=== PATIENT | female | born 1940 | race Caucasian/White ===

== ENCOUNTER 2017-12-06 10:04 | Emergency (ER) | payer MEDICARE, OTHER ==
--- NOTE | 2017-12-06 12:04 | ED Physician Documentation ---
PD HPI URI - Stated complaint Stated Complaint: FLU LIKE SYMPTOMS - Chief complaint Chief Complaint: Resp - History obtained from History obtained from: Patient - History of Present Illness Timing - onset: How many days ago (few) Timing duration: Days (few) Timing details: Gradual onset, Still present Associated symptoms: Nasal congestion, Dry cough, Dyspnea. No: Fever, Chills, Sore throat, Productive cough, Chest pain, Bilateral edema Contributing factors: Immunocompromised (chronic neutropenia). No: Sick contact , Travel Similar symptoms before: Has not had sx before Recently seen: Not recently seen Review of Systems Constitutional: reports: Myalgias. denies: Fever, Chills Nose: reports: Rhinorrhea / runny nose, Congestion Throat: denies: Sore throat Cardiac: denies: Chest pain / pressure, Palpitations Respiratory: reports: Cough, Wheezing GI: denies: Nausea, Vomiting, Diarrhea Skin: denies: Rash Neurologic: denies: Generalized weakness, Focal weakness, Numbness PD PAST MEDICAL HISTORY - Past Medical History Past Medical History: Yes Cardiovascular: Hypertension Respiratory: Asthma Endocrine/Autoimmune: HyPOthyroidism, Other (chronic low neutropenia) - Past Surgical History Past Surgical History: Yes Derm: Skin cancer surgery - Present Medications Home Medications: Ambulatory Orders Medication Instructions Recorded Confirmed Albuterol Sulf [Ventolin Hfa 1 - 2 puffs INH Q4HR PRN #1 inhaler 12/06/17 Inhaler] Levothyroxine [Synthroid] 1 tab PO DAILY 12/06/17 12/06/17 Metoprolol Succinate/Hctz 1 tab PO DAILY 12/06/17 12/06/17 [Metoprolol ER-Hctz 50-12.5 mg] buPROPion [Wellbutrin Sr] 1 tab PO DAILY 12/06/17 12/06/17 - Allergies Allergies/Adverse Reactions: Allergies Allergy/AdvReac Type Severity Reaction Status Date / Time SARWAT Inhibitors Allergy Unknown Verified 12/06/17 12:27 Penicillins Allergy Itching Verified 12/06/17 12:27 - Social History Does the pt smoke?: No Smoking Status: Never smoker Does the pt drink ETOH?: No Does the pt have substance abuse?: No - Immunizations Immunizations are current?: No PD ED PE NORMAL - Vitals Vital signs reviewed: Yes - General General: Alert and oriented X 3, No acute distress, Well developed/nourished - HEENT HEENT: Ears normal, Pharynx benign - Neck Neck: Supple, no meningeal sign, No adenopathy - Cardiac Cardiac: RRR, No murmur - Respiratory Respiratory: Clear bilaterally - Abdomen Abdomen: Soft, Non tender - Derm Derm: Normal color, Warm and dry - Extremities Extremities: No deformity, No tenderness to palpate, No edema, No calf tenderness / cord - Neuro Neuro: Alert and oriented X 3, No motor deficit, Normal speech Results - Vitals Vitals: Oxygen O2 Source Room air - Labs Labs: Laboratory Tests 12/06/17 11:31 Influenza A (Rapid) Negative Influenza B (Rapid) Negative - Rads (name of study) chest Radiology: Prelim report reviewed (discoid scarring in fissure and angles. No acute infiltrate. ), EMP read contemporaneously PD MEDICAL DECISION MAKING - ED course Complexity details: reviewed results (scarring in lung but no acute infiltrate) , considered differential, d/w patient Departure - Departure Disposition: 01 Home, Self Care Clinical Impression: Upper respiratory infection Qualifiers: URI type: unspecified URI Qualified Code(s): J06.9 - Acute upper respiratory infection, unspecified Condition: Stable Record reviewed to determine appropriate education?: Yes Instructions: ED Upper Resp Infec No Abx Tx Prescriptions: Albuterol Sulf [Ventolin Hfa Inhaler] 1 - 2 puffs INH Q4HR PRN #1 inhaler PRN Reason: Shortness Of Air/Wheezing Comments: Drink lots of fluids. Tylenol or ibuprofen if needed for fevers or pains or aches. Your chest x-ray is clear without any signs of pneumonia. Your lungs sound clear and have good oxygenation level. It sounds like a viral infection. Presumably will improve over the next several days to week. Treat the symptoms with albuterol inhaler 2 puffs 4 times a day and extra times as needed for wheezing persistent cough. Decadron steroid helps with bronchial inflammation and reducing cough and improve airflow. Tessalon can be used for cough. At the cough medicine if needed for pains and cough. Recheck if still not improving over the next several days and sooner if worse. Discharge Date/Time: 12/06/17 12:35
[2017-12-06] MEDS ORDERED: DEXAMETHASONE 10 MG/ML VIAL PO STA (12:18)
[2017-12-06] MEDS ORDERED: BENZONATATE 100 MG CAPSULE PO STA (12:18)
[2017-12-06] MEDS ORDERED: ACETAMINOPHEN 325 MG TABLET PO STA (12:19)
--- NOTE | 2017-12-06 12:32 | XRAY Report ---
EXAM: CHEST RADIOGRAPHY EXAM DATE: 12/06/2017 11:48 AM. CLINICAL HISTORY: Productive cough, chills. COMPARISON: None. TECHNIQUE: 2 views. FINDINGS: Lungs/Pleura: Diskoid atelectasis or scarring right suprahilar region. Scarring or atelectasis bilate ral costophrenic angles.. No pleural effusion. No pneumothorax. Normal volumes. Mediastinum: Heart size normal. Mitral annular calcifications Ectatic aorta Other: Wedging in upper to mid T-spine vertebral bodies IMPRESSION: Areas of atelectasis or scarring bilaterally [facility] Referring Provider Line: [phone] SITE ID: [id number]
--- NOTE | 2017-12-06 12:32 | XRAY Preliminary Report ---
Exam: XR CHEST 2 VIEW X-RAY IMPRESSION: Areas of atelectasis or scarring bilaterally [facility] SITE ID: [id number]
[2017-12-06 12:33] VITALS: BP 131/85
== END 2017-12-06 12:35 | disposition home or self-care (01) ==
LOC: ED 10:04
DX: J06.9 Acute upper respiratory infection, unspecified (principal); I10 Essential (primary) hypertension; E03.9 Hypothyroidism, unspecified
CPT/HCPCS: 71046; 87275; 87276; 99283; A9270

== ENCOUNTER 2018-04-08 13:09 | Outpatient (CLI) | payer MEDICARE, OTHER ==
--- NOTE | 2018-04-08 14:14 | Ultrasound Report ---
Reason: L INGUINIAL PAIN Procedure Date: 04/08/2018 Accession Number: [id number] / [id number] Procedure: US - Pelvic Limited or F/U CPT Code: FULL RESULT: EXAM: PELVIS ULTRASOUND, LIMITED EXAM DATE: 04/08/2018 01:25 PM. CLINICAL HISTORY: L INGUINIAL PAIN. COMPARISON: None. TECHNIQUE: Real-time scanning was performed of the left inguinal region with static images obtained. FINDINGS: Ultrasound examination limited to the area of left inguinal pain demonstrates a normal-appearing 1.6 x 0.7 x 0.8 cm lymph node. No solid mass, abnormal fluid collections or hernia. Incidental note made of left common femoral artery calcification. IMPRESSION: Negative left inguinal ultrasound except for a normal-appearing lymph node in the area of pain. [facility]
== END 2018-04-08 13:10 | disposition home or self-care (01) ==
LOC: DI 13:09
PROVIDERS: ATTEND Internal Medicine
DX: R10.2 Pelvic and perineal pain (principal)
CPT/HCPCS: 76857

== ENCOUNTER 2018-06-17 08:58 | Outpatient (CLI) | payer MEDICARE, OTHER ==
[2018-06-17 09:45] LABS: BASOPHILS % (AUTO) 0.9 %; EOSINOPHILS # (AUTO) 0.2 10^3/uL (0.0-0.7); EOSINOPHILS % (AUTO) 4.9 %; HGB - HEMOGLOBIN 15.9 g/dL (12.0-16.0); LYMPHOCYTES # (AUTO) 2.3 10^3/uL (1.5-3.5); LYMPHOCYTES % (AUTO) 59.9 %; MEAN CORPUSCULAR HEMOGLOBIN 30.2 pg (27.0-31.0); MEAN CORPUSCULAR HGB CONC 34.2 g/dL (32.0-36.0); MEAN CORPUSCULAR VOLUME 88.4 fL (81.0-99.0); MEAN PLATELET VOLUME 8.8 fL (7.9-10.8); MONOCYTES # (AUTO) 0.8 10^3/uL (0.0-1.0); MONOCYTES % (AUTO) 21.6 %; NEUTROPHILS % (AUTO) 12.7 %; PLT - PLATELET COUNT 198 10^3/uL (130-450); RED BLOOD COUNT 5.25 10^6/uL (4.20-5.40); RED CELL DISTRIBUTION WIDTH 13.7 % (12.0-15.0); WHITE BLOOD COUNT 3.8 x10^3/uL (4.8-10.8)
[2018-06-17 09:48] LABS: ALBUMIN 4.1 g/dL (3.2-5.5); ALBUMIN/GLOBULIN RATIO 1.2 (1.0-2.2); BILIRUBIN,TOTAL 1.2 mg/dL (0.2-1.0); CALCIUM 10.1 mg/dL (8.5-10.3); CREATININE 0.7 mg/dL (0.4-1.0); TOTAL PROTEIN 7.5 g/dL (6.7-8.2)
[2018-06-17 09:54] LABS: NEUTROPHILS # (AUTO) 0.5 10^3/uL (1.5-6.6)
[2018-06-17 10:38] LABS: PLATELET ESTIMATE, MANUAL NORMAL (130-450,000) (NORMAL)
== END 2018-06-17 08:59 | disposition home or self-care (01) ==
LOC: LAB 08:58
PROVIDERS: ATTEND Internal Medicine
DX: R06.09 Other forms of dyspnea (principal); Z79.899 Other long term (current) drug therapy; G47.00 Insomnia, unspecified; I10 Essential (primary) hypertension
CPT/HCPCS: 36415; 80053; 83880; 84443; 85025

== ENCOUNTER 2019-03-28 14:22 | Outpatient (CLI) | payer MEDICARE, OTHER ==
--- NOTE | 2019-03-29 13:34 | Ultrasound Report ---
Reason: RUQ PAIN, BLOATING Procedure Date: 03/28/2019 Accession Number: [id number] / [id number] Procedure: US - Abdomen Complete CPT Code: FULL RESULT: EXAM: ABDOMEN ULTRASOUND EXAM DATE: 03/28/2019 04:20 PM. CLINICAL HISTORY: Right upper quadrant pain, bloating. COMPARISON: None. TECHNIQUE: Real-time scanning was performed with static images obtained. FINDINGS: Liver: Liver parenchyma is mildly echogenic diffusely. No evidence for cirrhosis or mass lesion. 15.7 cm. Main portal vein flow: Hepatopetal. Gallbladder: Normal. No stones, wall thickening, or sonographic Chavez's sign. Biliary System: Common bile duct measures 5 mm. No intrahepatic or extrahepatic ductal dilatation. Pancreas: Visualized portion is unremarkable. Kidneys: Right: 10.8 cm longitudinally. Normal. No contour-deforming mass, stones, or hydronephrosis. Left: 10.7 cm longitudinally. Normal. No contour-deforming mass, stones, or hydronephrosis. Spleen: 9.5 cm. Normal in size and echotexture. Aorta and Inferior Vena Cava: Unremarkable. Other: None. IMPRESSION: 1. Normal gallbladder. 2. Mildly infiltrated liver. [facility]
== END 2019-03-28 14:23 | disposition home or self-care (01) ==
LOC: DI 14:22
PROVIDERS: ATTEND Physician Assistant
DX: R10.11 Right upper quadrant pain (principal); R14.0 Abdominal distension (gaseous)
CPT/HCPCS: 76700

== ENCOUNTER 2019-05-29 12:53 | Outpatient (CLI) | payer MEDICARE, OTHER ==
--- NOTE | 2019-05-29 16:58 | SLEEP CARE CONSULTATION ---
Information from patient questionnaire entered by Gabby Irwin. I have reviewed and concur with the information entered by Gabby Irwin. This document represents the service I personally performed and the decisions made by me, Malika Villarreal MD, [facility] [place]. History of Present Illness Reason for Visit: New patient, Previously diagnosed sleep apnea (has not used machine for 1.5 years) Chief Complaint: reports: Insomnia, Unrefreshed sleep, Snoring, Excessive daytime sleepiness, Observed pauses in breathing, Fatigue, Frequent awakenings at night Duration of Symptoms: since 1992 Usual bedtime: [id number] Time it takes to fall asleep: 2 hours Snores at night: Yes Observed to quit breathing while asleep: Yes Sleeps alone due to snoring: No Reasons for waking at night: reports: Gasping for air Toss, Turn, or Twitch while sleeping: Yes Recalls having dreams: Yes Usually gets out of bed at: 1200 Feels refreshed in the morning: No Morning headache: Yes Sleepy or fatigued during the day: Yes Ever fallen asleep while driving: No Takes day naps: No Dreams during day naps: Yes Prior sleep studies: Yes Year and Where: 2014 [facility] (2 studies) Additional HPI information: I had the pleasure of seeing Ms. Nick today regarding obstructive sleep apnea- hypopnea. As you know, she is an 79 year old lady who was diagnosed with the sleep-disordered breathing at [facility] in 2014. The AHI was 23.9. She was prescribed a CPAP device set at 8 15 cmH2O. She used it sporadically at first and not much at all this past year. She said the pressure is too high. Presently her ResMed AirSense 10 is set at 9 12 cmH2O. She wears a ResMed AirFit F10 full face mask. She got his supplies from [employer]. She noticed significant improvement when she was able to use the device. Past Medical History Past Medical History: reports: Hypertension, Claustrophobia, Arthritis, Hypothyroidism, Fibromyalgia, Anemia, Anxiety, Depression, GERD, Other (spondylolithesis, severe dry eyes) Social History The patient's occupation is retired. Patient is and lives in [place]. Have you smoked in the past 12 months: No Alcohol use: No Caffeine use: No Family History Family history of sleep disordered breathing: Yes Family Hx Sleep Apnea: Other: Snoring (child) Allergies and Home Medications Drug allergies reviewed: Yes Home medication list reviewed: Yes Review of Systems Cardiovascular: reports: high blood pressure, leg or foot swelling Respiratory: reports: sputum production Gastrointestinal: reports: heartburn, difficulty swallowing, diarrhea, abdominal pain Urinary: reports: incontinence, frequency Neurological: reports: head trauma, gait or balance problems Psychiatric: reports: anxiety, depression, claustrophobia Ear/Nose/Throat: reports: nasal congestion, sinus problems, dry mouth/throat, hoarseness, wisdom teeth removed Endocrine: reports: thyroid disease, sluggishness, too hot or cold, increased urination Musculoskeletal: reports: joint pain, neck pain, back pain, joint swelling, muscle pain or cramping, mobility problems Immunologic: reports: sneezing, itching, allergies to food or environment Physical Exam Vital signs obtained and entered by: Dr. Villarreal Blood Pressure: 156/86 Cuff size: regular Heart Rate: 63 O2 Saturation: 95 Height: 5 ft 5 in Weight: 209 lb Body Mass Index: 34.7 BMI Classification: Obesity Class 1 Neck circumference: 16 Mood/affect: normal HEENT: No craniofacial malformation Nostrils: patent to airflow Turbinates: normal Septum: midline Mouth and throat: narrow oropharynx Soft palate: long Hard palate: normal Uvula: normal Uvula visualization: 25% Mallampati Class III Tongue: normal in size Tonsils: small Chin and jaw: normal size and position Neck: normal w/o lymphadenopathy or thyromegaly Heart: regular rate and rhythm Lungs: clear bilaterally Abdomen: soft, non-tender Extremities: no edema or clubbing Neurologic: intact, no focal deficits Impression and Plan IMPRESSION: 1. Obstructive Sleep Apnea-Hypopnea Syndrome, moderate, as previously diagnosed. The patient is not using her CPAP because of air leaking into her eyes and the pressure being too high subjectively. The patient did experience improvement on the treatment when she was able to use the CPAP. Without the CPAP, she snores loudly and wakes up choking. Narrow oropharynx and obesity are common predisposing factors for obstructive sleep apnea-hypopnea syndrome. Pathophysiology of sleep-disordered breathing was discussed. I advised her to start using her CPAP again. I will lower the pressure to make it comfortable. I recommend switching to newer full face masks. Plan: 1. Restart CPAP at 4 8 cmH2O (pressure change made manually on her machine). 2. A different full face mask, e.g. ResMed AirTouch F-20 full face mask, Res[employer] S.As DreamWear full face mask, and ResMed F30 full face mask. 3. Avoid alcohol, sedative and muscle relaxant around bedtime. 4. Attempt to lose weight. 5. Return for follow up in one month. I spent 100% of this 20 minute visit face to face with the patient with greater than 50% of this was spent time counseling the patient and coordination of care.
[2019-05-29 16:59] VITALS: BP 156/86
== END 2019-05-29 12:54 | disposition home or self-care (01) ==
LOC: SC 12:53
PROVIDERS: ATTEND Internal Medicine Pulmonary Disease
DX: G47.33 Obstructive sleep apnea (adult) (pediatric) (principal)
CPT/HCPCS: 99203; G0463; 99212

== ENCOUNTER 2019-07-15 12:32 | Outpatient (CLI) | payer MEDICARE, OTHER ==
--- NOTE | 2019-07-16 05:03 | MRI Report ---
Reason: LUMBAR RADICULOPATHY Procedure Date: 07/15/2019 Accession Number: [id number] / [id number] Procedure: MRI - Lumbar Spine W/O CPT Code: Final Report FULL RESULT: EXAM: MRI LUMBAR SPINE WITHOUT CONTRAST EXAM DATE: 07/15/2019 01:39 PM. CLINICAL HISTORY: Lumbar radiculopathy. COMPARISON: LUMBAR SPINE 2 VIEW 08/29/2018 11:26 AM. TECHNIQUE: Multiplanar, multisequence T1-weighted and fluid-sensitive sequences of the lumbar spine from T11 to S1 without contrast. Other: None. FINDINGS: Spinal Canal: The conus terminates at L2. The conus medullaris and cauda equina are unremarkable. Alignment: Grade 1 anterolisthesis at L5-S1 measures 3-4 mm, stable. Bone Marrow: Five [id number] lumbar vertebral bodies are confirmed on the radiographs. No gross fractures or bone lesions. No bone marrow replacement. Disk Levels/Facets: T11-T12: Unremarkable on sagittal images. T12-L1: Unremarkable. L1-L2: Bilateral facet arthropathy is present without spinal canal or foraminal stenosis. L2-L3: Bilateral facet arthropathy results in moderate bilateral foraminal narrowing. The spinal canal is patent. L3-L4: A disk bulge with facet arthropathy and ligamentum flavum infolding result in mild spinal canal stenosis. A left foraminal annular fissure is noted. There is mild fluid in the facet joints. There is mild bilateral foraminal narrowing. L4-L5: A disk bulge with facet arthropathy and ligamentum flavum infolding result in moderate spinal canal stenosis. A left foraminal annular fissure is noted. There is trace fluid in the facet joints. A small synovial cyst is seen adjacent to the posterior aspect of the right facet joint measuring 5 mm (image 13, series 601). There is moderate bilateral foraminal narrowing. L5-S1: Anterolisthesis is present with uncovering of the disk. Superimposed facet arthropathy and ligamentum flavum infolding result in moderate spinal canal stenosis. There is moderate fluid in the bilateral facet joints. Facet arthropathy and anterolisthesis result in moderate bilateral foraminal narrowing. Musculature: There is moderate diffuse fatty atrophy of the posterior paraspinal muscles without intramuscular edema. Other: The partially visualized retroperitoneum is unremarkable. IMPRESSION: 1. Normal conus medullaris and cauda equina. 2. Mild to moderate multilevel degenerative changes result in moderate spinal canal stenosis at L4-L5 and L5-S1 with moderate bilateral foraminal narrowing. 3. No abnormal bone marrow edema is seen. Comment: The following findings are so common in adults without low back pain that while we report their presence, they must be interpreted with caution and in the context of the clinical situation. (Reference Noreenk et al, Spine 2001) Prevalence of findings in patients without low back pain: Disk degeneration (any evidence): 92% Disk desiccation/T2 signal loss: 83% Disk height loss: 56% Disk bulge: 64% Disk protrusion: 32% Annular tear/high intensity zone: 38% [facility]
== END 2019-07-15 12:33 | disposition home or self-care (01) ==
LOC: DI 12:32
PROVIDERS: ATTEND Orthopaedic Surgery
DX: M51.16 Intervertebral disc disorders with radiculopathy, lumbar region (principal); M48.061 Spinal stenosis, lumbar region without neurogenic claudication
CPT/HCPCS: 72148

== ENCOUNTER 2019-08-01 13:45 | Outpatient (CLI) | payer MEDICARE, OTHER ==
--- NOTE | 2019-08-01 23:02 | SLEEP CARE CONSULTATION ---
Information from patient questionnaire entered by Dena Marcano. I have reviewed and concur with the information entered by Dena Marcano. This document represents the service I personally performed and the decisions made by me, Malika Villarreal MD, [facility]. History of Present Illness Previous diagnosis: Moderate, Obstructive Sleep Apnea-Hypopnea Syndrome AHI: 23.9 Reason for follow up: other (2 month) Equipment type: CPAP Equipment obtained from: [facility] Mask style: Full face Mask brand: Respironics HPI additional information: HPI: Ms. Nick returned today for follow up of nasal CPAP therapy. She was diagnosed to have moderate obstructive sleep apnea-hypopnea syndrome. The patient wears with a Respironics AmaraView full face mask. She reports using the device almost nightly but not night. She complained of runny nose but no particular problem with the device such as soreness on the face, dry nose, epi staxis, nasal congestion or headache. She thinks that the pressure of 4 - 8 is more comfortable but is now too low at the beginning of the night. On the CPAP therapy she notices improvement in her sleep quality, and that she wakes up feeling fresher in the morning and more awake/alert during the day. AHI is 8; and air leak, 3 L/min. Subjective Patient concerns: reports: air blowing in eyes, nasal congestion, dry mouth, nose, throat Initial [place] Sleepiness Scale score: 4 Current [place] Sleepiness Scale score: 3 Allergies and Home Medications Drug allergies reviewed: Yes Home medication list reviewed: Yes Review of Systems Review of systems same as previous: Yes Physical Exam Weight: 210 lb Impression and Plan IMPRESSION: 1. Obstructive Sleep Apnea-Hypopnea Syndrome, moderate, with the patient continuing to have [id number]. The lower pressure setting is more comfortable but the residual AHI is now higher. The patient wanted to switch from [facility] to [facility] but is not getting response from the latter. She would like to switch back. She is in need of a new Respironics AmaraView full face mask. PLAN: 1. Raise autoCPAP slightly to 6 10 cmH2O. 2. Prescription made for supplies and faxed to [facility]. 3. Try a ResMed AirTouch F-20 full face mask. 4. Return for follow up in 2 months. I spent 100% of this visit face to face with the patient with greater than 50% of this was spent time counseling the patient and coordination of care.
== END 2019-08-01 13:46 | disposition home or self-care (01) ==
LOC: SC 13:45
PROVIDERS: ATTEND Internal Medicine Pulmonary Disease
DX: G47.33 Obstructive sleep apnea (adult) (pediatric) (principal)
CPT/HCPCS: 99213; G0463; 99212

== ENCOUNTER 2019-08-28 17:22 | Outpatient (CLI) | payer MEDICARE, OTHER ==
--- NOTE | 2019-08-28 19:51 | Ultrasound Report ---
Reason: PAIN AND SWELLING LT LOWER LEG Procedure Date: 08/28/2019 Accession Number: [id number] / [id number] Procedure: US - Duplex Ext Veins Left CPT Code: Final Report FULL RESULT: EXAM: LEFT LOWER EXTREMITY VENOUS ULTRASOUND EXAM DATE: 08/28/2019 06:14 PM. CLINICAL HISTORY: PAIN AND SWELLING LT LOWER LEG. COMPARISON: None. TECHNIQUE: Real-time sonographic vascular imaging was performed by the welding machine operator/tender through the lower extremity utilizing both color-flow and Doppler spectral analysis. Multiple malt liquors sales representative static images were saved for review. FINDINGS: Common Femoral Vein (CFV): Normal. CFV-GSV Junction: Normal. Profunda Femoral Vein (PFV): Normal. Femoral Vein (FV) Prox: Normal. Femoral Vein (FV) Mid: Normal. Femoral Vein (FV) Dist: Normal. Popliteal Vein: Normal. Posterior Tibial Veins: Normal. Peroneal Veins: Normal. Other: None. IMPRESSION: No evidence for deep venous thrombosis in the visualized left lower extremity. [facility]
== END 2019-08-28 17:23 | disposition home or self-care (01) ==
LOC: DI 17:22
PROVIDERS: ATTEND Internal Medicine
DX: M79.662 Pain in left lower leg (principal); R22.42 Localized swelling, mass and lump, left lower limb

== ENCOUNTER 2019-09-27 12:47 | Outpatient (CLI) | payer MEDICARE, OTHER ==
[2019-09-27 13:42] VITALS: BP 120/70
--- NOTE | 2019-09-27 13:42 | SLEEP CARE CONSULTATION ---
Information from patient questionnaire entered by Dena Marcano. I have reviewed and concur with the information entered by Dena Marcano. This document represents the service I personally performed and the decisions made by me, Maryjo Redman, RN, MSN, CONDITIONER TENDER. History of Present Illness Previous diagnosis: Moderate, Obstructive Sleep Apnea-Hypopnea Syndrome AHI: 23.9 Reason for follow up: other (2 month) Equipment type: CPAP Equipment obtained from: [facility] Mask style: Full face Mask brand: Resmed (Air Fit F20) Backup mask available: Yes (old mask ) Last cushion change: a month ago CPAP Compliance Data - Data Reviewed with Patient Average duration of nightly device use: 3.05 Compliance rate %: 37 Current pressure setting (cmH2O): 4-9 Average residual AHI: 18.0 Subjective Patient concerns: reports: air blowing in eyes, nasal congestion (chronic), dry mouth, nose, throat. denies: aerophagia, mask discomfort, mask leak noise, condensation in mask/hose, epistaxis Observed to snore while using device: Yes Current pressure setting perceived as: comfortable (not sleeping better due to mask leaks and dry mouth.) Initial [place] Sleepiness Scale score: 4 Current [place] Sleepiness Scale score: 5 Review of Systems Review of systems same as previous: No (left ankle pain and swelling, seeing a specialist ) Physical Exam Blood Pressure: 120/70 Cuff size: long Heart Rate: 64 O2 Saturation: 97 Height: 5 ft 5 in Weight: 203 lb Body Mass Index: 33.7 BMI Classification: Obese Impression and Plan 1. Obstructive Sleep Apnea-Hypopnea Syndrome, moderate, with fair treatment compliance and elevated residual AHI . On CPAP therapy, the patient has better sleep quality and is more rested overall. For mask concerns, it seems she was fitted with too small of a mask. She brought it in and it does not fit well around her mouth if she opens her mouth to breathe. She is waking frequently to mask leaks and irritation of eyes. She is wearing an eye cover and uses eye drops. She is advised to also follow up with her eye doctor due to chronic dry eye condition. I remeasured her and a medium mask would be a better fit.. Thus I wrote an order for a medium mask cushion and change in style to Air Touch. It is hoped this will reduce mask leaks and eye irritation and improve sleep. Mask leaks predominately from when patient sleeps on their side can be reduced by using a CPAP pillow. A CPAP pillow sample was shown. This and other styles can be purchased online. Oral dryness can be reduced by adjusting humidity setting higher as completed on her CPAP and changed from auto to 6 setting. The heated hose was also adjusted lower to 77 as she is running out of water when awakens. Printed instructions given on how to change humidity and heated hose settings with rationale explaining why to change further. Oral dryness can also be reduced by reducing mask leaks. Patient advised that chronic oral dryness can affect dental health and advised to follow up with dentist. In addition, there are oral dryness products that can be used to reduce dryness such as Biotene products, Dry mouth rinse and Xylimelts. Patient to discuss best option with dentist. Patient's apnea severity and rationale for treatment to reduce apnea, improve sleep quality and reduce cardiovascular and cerebrovascular events was reviewed. I also reviewed the benefit of consistent device use of CPAP for hypertension. Hopefully the above measures will improve her sleep quality and benefit from CPAP use. * Change CPAP pressure to 8-12 cmH2O * Change mask cushion size * Follow up with eye doctor for chronic dry eye condition * Notify me if snoring with mask or feeling that the pressure is too much or too little * Attempt to lose weight * Call this office if any problems using CPAP * Return for follow up in 2 months , or sooner if concerns arise Time Spent with Patient (minutes): 40 I spent 100% of this visit face to face with the patient with greater than 50% of this was spent time counseling the patient and coordination of care.
== END 2019-09-27 12:48 | disposition home or self-care (01) ==
LOC: SC 12:47
PROVIDERS: ATTEND Nurse Practitioner Family
DX: G47.33 Obstructive sleep apnea (adult) (pediatric) (principal); E66.9 Obesity, unspecified; Z68.33 Body mass index [BMI] 33.0-33.9, adult
CPT/HCPCS: 99215; G0463; 99212

== ENCOUNTER 2019-11-29 13:00 | Outpatient (CLI) | payer MEDICARE, OTHER ==
--- NOTE | 2019-11-29 13:30 | SLEEP CARE CONSULTATION ---
Information from patient questionnaire entered by Gabby Irwin. I have reviewed and concur with the information entered by Gabby Irwin. This document represents the service I personally performed and the decisions made by me, Maryjo Redman, RN, MSN, [place]. History of Present Illness Service Date and Time: 11/29/2019 1300 Previous diagnosis: Moderate, Obstructive Sleep Apnea-Hypopnea Syndrome AHI: 23.9 Reason for follow up: other (2 month with pressure change) Equipment type: CPAP Equipment obtained from: [facility] Mask style: Full face (Air foam) CPAP Compliance Data - Data Reviewed with Patient Average duration of nightly device use: 3H 38M Compliance rate %: 28 Current pressure setting (cmH2O): 8-12 Humidity setting: ? Heated hose setting: ? Average residual AHI: 10 Central apnea: 1.7 Obstructive apnea: 5.9 Hypopnea: 2.4 Average large leak: zero Subjective Patient concerns: reports: mask discomfort (at bridge of nose as sits too high), air blowing in eyes (due to fitting too high on bridge of nose - looking for googles to wear to protect eyes/ uses eye drops), mask leak noise (fits better around mouth since new mask cushion), dry mouth, nose, throat (very dry), other (pulling off in sleep when wakes too dry as too uncomfortable, unknown humidity setting as not on compliance / fills reservoir to line every night. ). denies: aerophagia, condensation in mask/hose, nasal congestion, epistaxis Current pressure setting perceived as: comfortable On therapy, patient: reports: sleeping better (if not waking to mask problems or dryness) Initial [place] Sleepiness Scale score: 4 Physical Exam Height: 5 ft 5 in Impression and Plan 1. Obstructive Sleep Apnea-Hypopnea Syndrome, moderate, with fair treatment compliance and elevated residual AHI apnea control. On CPAP therapy, the patient has better sleep quality and is more rested overall. To reduce mask leaks, I will have her try the new style she has that sits below nose. This style may be more effective the way she describes current mask fit and should reduce mask leaks into her eyes. She is to continue with eye lubricating drops and her eye mask. I will also have her DME contact her re a mask fit and if another style is needed. Oral dryness can be reduced by adjusting humidity setting higher or heated hose lower or by adjusting both settings. I will have her DME contact her how to change humidity and heated hose settings. Her device does not report current settings on data download. Her current pressure range has reduced residual AHI significantly to mild range. It appears to be affected by her mask leaks so I will not change until a better seal is found. Hopefully the above measures will assist patient to be able to use CPAP more comfortably and obtain more benefit from treatment. Patient's apnea severity and rationale for treatment to reduce apnea, improve sleep quality and reduce cardiovascular and cerebrovascular events was reviewed. * Continue auto CPAP pressure at 8-12 cmH2O * Try new mask style has that sits below nose * Mask refitting * Use eye cover * Adjust humidity. * Contact this office if continued mask problems. * Notify me if snoring with mask or feeling that the pressure is too much or too little * Call this office if any problems using CPAP * Return for follow up in 1 month , or sooner if concerns arise Visit Type: Telehealth Phone (to reduce risk of Covid 19 exposure) Patient Location: Home Location of Provider: Home Patient agrees and consents to this telehealth visit type: Yes Patient agrees to have their insurance billed: Yes Time Spent with Patient (minutes): 10 Provider Statement: I spent 100% of the Telehealth Phone Call with the patient with greater than 50% spent counseling the patient and coordination of care.
== END 2019-11-29 13:01 | disposition home or self-care (01) ==
LOC: SC 13:00
PROVIDERS: ATTEND Nurse Practitioner Family
DX: G47.33 Obstructive sleep apnea (adult) (pediatric) (principal)

== ENCOUNTER 2020-01-10 14:52 | Outpatient (CLI) | payer MEDICARE, OTHER ==
--- NOTE | 2020-01-10 15:43 | SLEEP CARE CONSULTATION ---
Information from patient questionnaire entered by Dena Marcano. I have reviewed and concur with the information entered by Dena Marcano. This document represents the service I personally performed and the decisions made by me, Maryjo Redman, RN, MSN, [employer]. History of Present Illness Service Date and Time: 01/10/2020 1452 Previous diagnosis: Moderate, Obstructive Sleep Apnea-Hypopnea Syndrome AHI: 23.9 (in 2015) Reason for follow up: other (6 week) Equipment type: CPAP Equipment obtained from: [facility] Mask style: Full face ([place] with clips) Backup mask available: Yes (old mask Air Touch ) Last cushion change: changed to large - 1 month ago Prior sleep studies: Yes Year and Where: 2014 - [facility] ([place], [place]) Sleep Medicine in [place], [place] Type of Sleep Study: Polysomnography CPAP Compliance Data - Data Reviewed with Patient Average duration of nightly device use: 2.75 Compliance rate %: 13 Current pressure setting (cmH2O): 8-12 Humidity setting: auto Heated hose settin% Average residual AHI: 4.7 (11.4 cmH20 95th 9.7 median) Average large leak: 4.4 liters per minute Subjective Missed days of use due to: reports: other (reduced nights of use are due to waking to pressure too high and generally it is at [id number]) Patient concerns: reports: aerophagia (mild distention of stomach and relieved with burping. treated for GERD with antiacids), air blowing in eyes, mask leak noise, nasal congestion (chronic -talked to PCP - stopped antihistamines ), dry mouth, nose, throat (dry mouth day and night - adjusted humidity ), epistaxis. denies: mask discomfort (wearing an eye mask / most days especially higher pressure), condensation in mask/hose, other Observed to snore while using device: Yes (mild) Current pressure setting perceived as: too high (most nights and takes off mask after a short while) On therapy, patient: reports: other (Patient not able to sleep any length of time with CPAP as wakes with pressure too high at [id number] and takes off mask. ) Initial [place] Sleepiness Scale score: 4 (in 2019) Current [place] Sleepiness Scale score: 7 Allergies and Home Medications Home medication list reviewed: No (losartan reduced to 50mg and stopped antih istamine) Review of Systems Review of systems same as previous: Yes Physical Exam Blood Pressure: 138/80 Cuff size: long Heart Rate: 58 O2 Saturation: 97 Height: 5 ft 5 in Weight: 207 lb Body Mass Index: 34.4 BMI Classification: Obese Impression and Plan 1. Obstructive Sleep Apnea-Hypopnea Syndrome, moderate, with fair treatment compliance and good apnea control. On CPAP therapy, the patient has noted reduced sleep on current pressure as feels it is too high. She is also experiencing aerophagia. For comfort of air and aerphagia I will change her autoCPAP pressure to [id number]. She is to contact this office if pressure uncomfortable or is not correcting her aerophagia. Her oral dryness can be reduced by adjusting humidity setting higher or heated hose lower or by adjusting both settings. Patient brought in her device as could not find instructions on how to change her settings. I showed her how to change setting and humidity changed from auto to 6. Printed instructions given on how to change humidity and heated hose settings with rationale explaining why to change. Patient advised that chronic oral dryness can affect dental health and advised to follow up with dentist. She has already started Biotene spray before and after sleep. Patient to discuss best option with dentist. She has an appointme nt scheduled for March. Patient's apnea severity and rationale for treatment to reduce apnea, improve sleep quality and reduce cardiovascular and cerebrovascular events was reviewed. * * Changeauto CPAP pressure to 9-10 cmH2O * Implement methods to reduce oral dryness. * Notify me if snoring with mask or feeling that the pressure is too much or too little * Attempt to lose weight * Call this office if any problems using CPAP * Return for follow up in 2 months , or sooner if concerns arise Visit Type: In Office Time Spent with Patient (minutes): 30 Provider Statement: I spent 100% of the Face to Face Visit with the patient with greater than 50% spent counseling the patient and coordination of care.
[2020-01-10 17:22] VITALS: BP 138/80
== END 2020-01-10 14:53 | disposition home or self-care (01) ==
LOC: SC 14:52
PROVIDERS: ATTEND Nurse Practitioner Family
DX: G47.33 Obstructive sleep apnea (adult) (pediatric) (principal); E66.9 Obesity, unspecified; Z68.34 Body mass index [BMI] 34.0-34.9, adult
CPT/HCPCS: 99214; G0463; 99212

== ENCOUNTER 2020-01-24 12:53 | Outpatient (CLI) | payer MEDICARE, OTHER ==
--- NOTE | 2020-02-01 11:11 | Mammography Report ---
BILATERAL DIGITAL SCREENING MAMMOGRAM 3D/2D: 01/24/2020 CLINICAL: Routine screening. No prior exams were available for comparison. There are scattered fibroglandular elements in both br easts. No significant masses, calcifications, or other findings are seen in either breast. IMPRESSION: NEGATIVE There is no mammographic evidence of malignancy. A 1 year screening mammogram is recommended. This exam was interpreted at Station ID: [id number]. NOTE: For mammograms, a report in lay terms will be sent to the patient. Approximately 15% of breast malignancies will not be visualized mammographically. In the management of a palpable breast mass, a negative mammogram must not discourage biopsy of a clinically suspicious lesion. Electronically Signed By: Monroe gamez/mariela:01/31/2020 17:51:19 ACR BI-RADS Category 1: Negative 3341F PARENCHYMAL PATTERN: (A) - The breast(s) demonstrate(s) scattered fibroglandular densities. BI-RADS CATEGORY: (1) - 1 RECOMMENDATION: (ANNUAL) - Recommend routine annual screening mammography. [id number] 1 year screening LATERALITY: (B)
== END 2020-01-24 12:54 | disposition home or self-care (01) ==
LOC: DI 12:53
PROVIDERS: ATTEND Internal Medicine
DX: Z12.31 Encounter for screening mammogram for malignant neoplasm of breast (principal)
CPT/HCPCS: 77063; 77067

== ENCOUNTER 2020-03-27 11:41 | Outpatient (CLI) | payer MEDICARE, OTHER | END 2020-03-27 11:42 | disposition home or self-care (01) | LOC: LAB 11:41 | PROVIDERS: ATTEND Internal Medicine | DX: K11.7 Disturbances of salivary secretion (principal); H04.123 Dry eye syndrome of bilateral lacrimal glands | CPT/HCPCS: 36415; 81599; 86235 ==

== ENCOUNTER 2020-06-18 10:41 | Outpatient (CLI) | payer MEDICARE, OTHER ==
--- NOTE | 2020-06-18 18:17 | CARDIAC PROCEDURE NOTE ---
DATE OF SERVICE: 06/18/2020 Physician: Teri Carreno MD [place] protocol time 4 minutes 22 seconds. METs is 5.93. REASON FOR STOPPING TEST: Dizziness, feeling as though she were going to collapse. HEART RATE RESPONSE: Baseline 64 to maximum of 138, which was well over the 85% maximum heart rate predicted of 117. BLOOD PRESSURE RESPONSE: 182/86 to maximum 239/86. SYMPTOMS: She had some chest pain toward the end of the exercise portion of the test. She also complained of some nausea. ST-SEGMENT RESPONSE: Minimal ST depression 1 mm in leads II and III. ARRHYTHMIAS: None detected. IMPRESSION: No significant EKG changes. Symptoms of chest pain occurred. CONCLUSION: Await Cardiolite portion of test thus far an equivocal test. TD: 06/18/2020 15:32 MTDD
--- NOTE | 2020-06-19 17:22 | Nuclear Medicine Report ---
PROCEDURE: Rest and exercise myocardial perfusion SPECT with gated imaging and ejection fraction INDICATIONS: CHEST PAIN RADIOPHARMACEUTICAL: 10.5 mCi Tc-99m Myoview IV at rest and 32.6 mCi Tc-99m Myoview IV at peak exerc ise. [id number] was performed. TECHNIQUE: Radiopharmaceutical was injected at peak stress test, and also at rest. SPECT images wer e obtained. SPECT myocardial perfusion images were displayed in short axis, horizontal long axis, an d vertical long axis views. Gated images were reviewed using AutoQUANT software. COMPARISON: None available. FINDINGS: Raw data: There is good myocardial labeling by radiotracer. No significant motion artifacts. Lung- to-heart ratio is 0.28 (normal is less than 0.38 for tetrafosmin tracer). Left ventricle function: Gated images demonstrate normal left ventricle wall thickening. No segment al wall motion abnormality. No transient ischemic dilation; TID is 1.03 (normal less than 1.3). The left ventricle resting end-diastolic volume is normal. Left ventricle stress ejection fraction is > 70%; normal values are above 45%. Myocardial perfusion: There is a small, mild, partially reversible perfusion defect in the anterior apex, which is resolved on prone imaging, likely caused by breast attenuation artifact. There is othe rwise normal distribution of activity in the left and right ventricular myocardium. No fixed or reve rsible perfusion defects to suggest myocardial ischemia or infarct. IMPRESSION: 1. Normal myocardial perfusion images. No convincing evidence for myocardial ischemia or infarction. 2. Normal left ventricular volume and systolic function. 3. Please correlate with stress ECG result. PQRS ATTESTATIONS: Measure 322 - Is this imaging test primarily performed on a low-risk surgery patient for preoperative evaluation within 30 days preceding their low-risk non-cardiac surgery? Low-risk surgery is defined as cardiac or myocardial infarction less than 1%, including (but not limited to) endoscopic pr ocedures, superficial procedures, cataract surgery, and excisional breast surgery: Answer: No Measure 323 - Is this imaging test performed primarily for the monitoring of an asymptomatic patient who had percutaneous coronary intervention on the visit date or within 2 years of the visit date? An swer: No Measure 324 - Is this imaging test performed primarily for the initial detection and risk assessment on an asymptomatic, low coronary heart disease patient? Low CHD risk definition = clinicians should consider the maximum number of available patient factors used to estimate risk based on [place] (A TP III criteria), typically age, gender, diabetes, smoking status, and use of blood pressure medicati on, and integrate age appropriate estimates for missing elements, such as LDL or standard blood press ure. Answer: No Reviewed by: Alf Flores MD on 06/19/2020 5:21 PM PST Approved by: Alf Flores MD on 06/19/2020 5:21 PM PST Station ID: [id number]
== END 2020-06-18 10:42 | disposition home or self-care (01) ==
LOC: DI 10:41
PROVIDERS: ATTEND Internal Medicine
DX: R07.9 Chest pain, unspecified (principal)
CPT/HCPCS: 78452; 93017; A9500

== ENCOUNTER 2020-07-05 14:05 | Outpatient (CLI) | payer MEDICARE, OTHER ==
[2020-07-05] MEDS ORDERED: IOVERSOL 320 50 ML VIAL ONE (14:31)
[2020-07-05] MEDS ORDERED: IOVERSOL 320 100 ML VIAL IVP ONE ×2 (14:31→15:36)
[2020-07-05 15:05] LABS: CREATININE 0.8 mg/dL (0.4-1.0)
[2020-07-05] MEDS ORDERED: IOVERSOL 320 50 ML VIAL PO ONE (15:36)
--- NOTE | 2020-07-05 16:20 | CT Report ---
PROCEDURE: Abdomen/Pelvis W INDICATIONS: ABD PX CONTRAST: IV CONTRAST: Optiray 320 ml: 100 PO CONTRAST: Optiray 320 ml50 TECHNIQUE: After the administration of oral and intravenous contrast, 5 mm thick sections acquired from the diap hragms to the symphysis. 5 mm thick coronal and sagittal reformats were acquired. For radiation dos e reduction, the following was used: automated exposure control, adjustment of mA and/or kV accordin g to patient size. COMPARISON: Abdominal ultrasound 03/28/2016. FINDINGS: Image quality: Excellent. ABDOMEN: Lung bases: Lung bases are clear. Heart size is prominent. Calcifications in the region of the mitr al valve. Solid organs: Liver and spleen are normal in size. No focal lesion. Suspect hepatic steatosis. Punct ate calcification at the inferior margin of the right lobe of the liver. Gallbladder is nondistended. No calcified gallstones identified. Biliary system is non dilated. Pancreas enhances normally. No adrenal nodules. Kidneys demonstrate normal size and enhancement, without hydronephrosis. Peritoneum and bowel: Bowel loops demonstrate normal wall thickness and caliber. Appendix is not def initely seen. Prominent stool the colon. No free fluid or air. Nodes and vessels: Small mesenteric lymph nodes in the right lower quadrant. No enlarged nodes. No re troperitoneal adenopathy. Aorta and inferior vena cava are normal in size. Moderate calcified atheros clerotic plaque in the abdominal aorta. Miscellaneous: Tiny fat-containing. The vocal hernia. PELVIS: Genitourinary: Bladder is decompressed. Small calcified fibroids. Miscellaneous: No inguinal hernias or adenopathy. Bones: No suspicious bony lesions. No vertebral body compression fractures. IMPRESSION: 1. Increased conspicuity of small mesenteric lymph nodes in the right lower quadrant. This could be d ue to occult inflammatory process. No free fluid. Appendix is not identified. 2. Prominent stool the colon which could be seen in constipation. Reviewed by: Marcin Tejeda MD on 07/05/2020 4:19 PM [facility] Approved by: Marcin Tejeda MD on 07/05/2020 4:19 PM [facility] Station ID: [id number]
== END 2020-07-05 14:06 | disposition home or self-care (01) ==
LOC: DI 14:05
PROVIDERS: ATTEND Internal Medicine
DX: R10.30 Lower abdominal pain, unspecified (principal); Z79.899 Other long term (current) drug therapy
CPT/HCPCS: 36415; 74177; 82565; Q9967

== ENCOUNTER 2020-10-03 12:54 | Outpatient (CLI) | payer MEDICARE, OTHER ==
[2020-10-03 13:29] LABS: BASOPHILS % (AUTO) 1.1 %; EOSINOPHILS # (AUTO) 0.1 10^3/uL (0.0-0.7); HCT - HEMATOCRIT 45.5 % (37.0-47.0); HGB - HEMOGLOBIN 15.1 g/dL (12.0-16.0); MEAN CORPUSCULAR HEMOGLOBIN 30.1 pg (27.0-31.0); MEAN CORPUSCULAR HGB CONC 33.2 g/dL (32.0-36.0); MEAN CORPUSCULAR VOLUME 90.6 fL (81.0-99.0); MEAN PLATELET VOLUME 10.7 fL (7.9-10.8); MONOCYTES # (AUTO) 0.6 10^3/uL (0.0-1.0); MONOCYTES % (AUTO) 17.5 %; NEUTROPHILS # (AUTO) 0.7 10^3/uL (1.5-6.6); NEUTROPHILS % (AUTO) 19.4 %; PLT - PLATELET COUNT 185 10^3/uL (130-450); RED BLOOD COUNT 5.02 10^6/uL (4.20-5.40); RED CELL DISTRIBUTION WIDTH 13.1 % (12.0-15.0); WHITE BLOOD COUNT 3.5 x10^3/uL (4.8-10.8)
[2020-10-03 14:41] LABS: ALBUMIN 3.8 g/dL (3.2-5.5); ALBUMIN/GLOBULIN RATIO 1.1 (1.0-2.2); ALKALINE PHOSPHATASE 54 IU/L (42-121); ALT ALANINE AMINOTRANSFERASE 18 IU/L (10-60); AST ASPARTATE AMINOTRANSFERASE 20 IU/L (10-42); BUN - BLOOD UREA NITROGEN 16 mg/dL (6-20); CALCIUM 9.5 mg/dL (8.5-10.3); CARBON DIOXIDE - CO2 29 mmol/L (21-32); CHLORIDE 102 mmol/L (101-111); CHOL/HDL RATIO 5.5 (<4.4); CHOLESTEROL 202 mg/dL; CREATININE 0.7 mg/dL (0.4-1.0); GFR - MDRD 80 (>89); GLUCOSE 95 mg/dL (70-100); HDL CHOLESTEROL 37 mg/dL; LDL CHOLESTEROL,CALCULATED 108 mg/dL; LDL/HDL RATIO 2.9 (<4.4); POTASSIUM 3.9 mmol/L (3.5-5.0); SODIUM 142 mmol/L (135-145); TOTAL PROTEIN 7.4 g/dL (6.7-8.2); TRIGLYCERIDES 286 mg/dL; VLDL CHOLESTEROL 57 mg/dL
[2020-10-03 20:06] LABS: ESTIMATED AVERAGE GLUCOSE 108 mg/dL (70-100); HEMOGLOBIN A1c% 5.4 % (4.27-6.07)
== END 2020-10-03 12:55 | disposition home or self-care (01) ==
LOC: LAB 12:54
PROVIDERS: ATTEND Internal Medicine
DX: I10 Essential (primary) hypertension (principal); Z13.6 Encounter for screening for cardiovascular disorders; Z79.899 Other long term (current) drug therapy; H81.10 Benign paroxysmal vertigo, unspecified ear; E03.9 Hypothyroidism, unspecified; R73.01 Impaired fasting glucose
CPT/HCPCS: 36415; 80053; 80061; 83036; 83721; 84443; 85025

== ENCOUNTER 2020-12-16 15:42 | Outpatient (CLI) | payer MEDICARE, OTHER ==
--- NOTE | 2020-12-16 16:44 | XRAY Report ---
PROCEDURE: Ankle 3 View LT INDICATIONS: L ANKLE PAIN TECHNIQUE: 3 views of the ankle were acquired. COMPARISON: None FINDINGS: Bones: No fractures or dislocations. Ankle mortise is normally aligned. No suspicious bony lesions . Soft tissues: No tibiotalar joint effusion. Achilles tendon appears normal. IMPRESSION: No visualized acute fracture or dislocation. However, occult injury cannot be excluded. Recommend short interval imaging follow-up in 7-10 days as clinically indicated for additional evalua tion. Reviewed by: Faye Bowers MD on 12/16/2020 4:42 PM PDT Approved by: Faye Bowers MD on 12/16/2020 4:42 PM PDT Station ID: [id number]
== END 2020-12-16 15:43 | disposition home or self-care (01) ==
LOC: DI 15:42
PROVIDERS: ATTEND Internal Medicine
DX: M25.572 Pain in left ankle and joints of left foot (principal)

== ENCOUNTER 2021-02-14 08:31 | Day surgery (SDC) | payer MEDICARE, OTHER ==
[2021-02-14] MEDS ORDERED: LACTATED RINGERS 1,000 ML IV ONE (08:43)
[2021-02-14] MEDS ORDERED: MIDAZOLAM 2 MG/2 ML VIAL ONE ×2 (10:20→10:58)
[2021-02-14] MEDS ORDERED: fentaNYL 250 MCG/5 ML VIAL ONE (10:20)
--- NOTE | 2021-02-14 10:41 | HISTORY & PHYSICAL EXAMINATION ---
Chief Complaint - Chief Complaint Chief Complaint: history of colon polyps History of Present Illness - History Obtained From Records Reviewed: yes History obtained from: pt Exam Limitations: none - History of Present Illness HPI Comment/Other: history of colon polyps and due for surveillance. History - Past Medical History Cardiovascular: reports: Hypertension, High cholesterol Respiratory: reports: Sleep apnea, CPAP use Endocrine/Autoimmune: reports: HyPOthyroidism GI: reports: GERD, Ulcers, Colon polyps : reports: Incontinence, Frequency HEENT: reports: None Psych: reports: Depression, Anxiety, Panic attacks Musculoskeletal: reports: Osteoarthritis, Chronic back pain Derm: reports: None MRSA Hx?: No - Past Surgical History General: reports: Colonoscopy Derm: reports: Skin cancer surgery Meds/Allgy - Home Medications Home Medications: Ambulatory Orders Medication Instructions Recorded Confirmed Levothyroxine [Synthroid] 100 mcg PO DAILY 12/06/17 02/14/21 Fluticasone [Flonase] 2 sprays INH DAILY 02/13/21 02/14/21 Loratadine [Claritin] 1 tab ORAL DAILY 02/13/21 02/13/21 Losartan [Cozaar] 1 tab ORAL DAILY 02/13/21 02/14/21 Zolpidem [Ambien] 12.5 mg ORAL DAILY 02/13/21 02/14/21 - Allergies Allergies/Adverse Reactions: Allergies Allergy/AdvReac Type Severity Reaction Status Date / Time SARWAT Inhibitors Allergy Unknown Verified 12/06/17 12:27 Penicillins Allergy Itching Verified 12/06/17 12:27 Review of Systems - Other Findings Other Findings: 10 pt ros as above otherwise unremarkable Exam - Vital Signs Reviewed Vital Signs: Yes Vital Signs: Vital Signs x48h Temp Pulse Resp BP Pulse Ox 02/14/21 08:43 36.4 C L 83 14 172/93 H 97 - Physical Exam General Appearance: positive: Alert Eyes Bilateral: positive: PERRL, EOMI ENT: positive: No signs of dehydration Neck: positive: No JVD Respiratory: positive: Breath sounds nml Cardiovascular: positive: Regular rate & rhythm Abdomen: positive: Non-tender, No distention Neurologic/Psychiatric: positive: Oriented x3 Conclusion/Plan - Problem List (1) History of colon polyps Conclusion/Plan: plan surveillance colonoscopy. parq held and consent obtained
[2021-02-14] MEDS ORDERED: LACTATED RINGERS 400 ML IV ONE (11:25)
[2021-02-14 11:56] VITALS: BP 121/65
== END 2021-02-14 08:32 | disposition home or self-care (01) ==
LOC: SDS 08:31
PROVIDERS: ATTEND Surgery
PROC: 0DBN8ZX Excision of Sigmoid Colon, Via Natural or Artificial Opening Endoscopic, Diagnostic (ICD-10-PCS; 2021-02-14)
PROC: 0DBK8ZX Excision of Ascending Colon, Via Natural or Artificial Opening Endoscopic, Diagnostic (ICD-10-PCS; principal; 2021-02-14 09:30)
DX: Z12.11 Encounter for screening for malignant neoplasm of colon (principal); D12.2 Benign neoplasm of ascending colon; K63.5 Polyp of colon; G47.30 Sleep apnea, unspecified
CPT/HCPCS: 45380; J3010; J7120

== ENCOUNTER 2022-04-23 14:06 | Outpatient (CLI) | payer MEDICARE, OTHER ==
--- NOTE | 2022-04-23 15:18 | DEXA Report ---
PROCEDURE: Dexa Spine and/or Hip INDICATIONS: OSTEOPENIA TECHNIQUE: Dual energy x-ray absorptiometry (DXA) was performed on a Spectral Edge System. Regions measur ed are the AP Spine, femoral neck, and if needed forearm. COMPARISON: None. FINDINGS: Lumbar Spine: Bone Mineral Density 1.1 g/cm/cm,T score -0.9, normal bone density Left Hip: Bone Mineral Density 1.0 g/cm/cm,T score 0.1, normal bone density. Impression: Normal bone density. Patients with diagnosis of osteoporosis or osteopenia should have regular bone mineral density assess ment. For those eligible for Medicare, routine testing is allowed once every 2 years. Testing frequ ency can be increased for patients who have rapidly progressing disease or for those who are receivin g medical therapy to restore bone mass. Reviewed by: Chantal Pradhan MD on 04/23/2022 3:16 PM PDT Approved by: Chantal Pradhan MD on 04/23/2022 3:16 PM PDT Station ID: [id number]
== END 2022-04-23 14:07 | disposition home or self-care (01) ==
LOC: DI 14:06
PROVIDERS: ATTEND Internal Medicine
DX: M85.80 Other specified disorders of bone density and structure, unspecified site (principal)

== ENCOUNTER 2022-05-27 08:00 | Outpatient (CLI) | payer MEDICARE, OTHER ==
[2022-05-27 16:32] LABS: BASOPHILS # (AUTO) 0.1 10^3/uL (0.0-0.1); BASOPHILS % (AUTO) 1.6 %; EOSINOPHILS # (AUTO) 0.2 10^3/uL (0.0-0.7); EOSINOPHILS % (AUTO) 4.9 %; HCT - HEMATOCRIT 45.8 % (37.0-47.0); HGB - HEMOGLOBIN 15.6 g/dL (12.0-16.0); LYMPHOCYTES # (AUTO) 1.8 10^3/uL (1.5-3.5); LYMPHOCYTES % (AUTO) 49.5 %; MEAN CORPUSCULAR HEMOGLOBIN 30.4 pg (27.0-31.0); MEAN CORPUSCULAR HGB CONC 34.1 g/dL (32.0-36.0); MEAN CORPUSCULAR VOLUME 89.1 fL (81.0-99.0); MEAN PLATELET VOLUME 11.7 fL (7.9-10.8); MONOCYTES # (AUTO) 0.8 10^3/uL (0.0-1.0); NEUTROPHILS # (AUTO) 0.8 10^3/uL (1.5-6.6); PLT - PLATELET COUNT 189 10^3/uL (130-450); RED BLOOD COUNT 5.14 10^6/uL (4.20-5.40); RED CELL DISTRIBUTION WIDTH 13.7 % (12.0-15.0); WHITE BLOOD COUNT 3.7 x10^3/uL (4.8-10.8)
[2022-05-27 16:43] LABS: ALBUMIN 3.8 g/dL (3.2-5.5); ALBUMIN/GLOBULIN RATIO 1.2 (1.0-2.2); BILIRUBIN,TOTAL 0.6 mg/dL (0.2-1.0); CALCIUM 9.5 mg/dL (8.5-10.3); CREATININE 0.9 mg/dL (0.4-1.0); POTASSIUM 4.3 mmol/L (3.5-5.0); TOTAL PROTEIN 7.1 g/dL (6.7-8.2)
[2022-05-27 16:57] LABS: THYROID STIMULATING HORMONE 0.5 uIU/mL (0.34-5.60)
== END 2022-05-27 23:59 | disposition home or self-care (01) ==
LOC: LAB.R 08:00
PROVIDERS: ATTEND Internal Medicine
DX: K29.60 Other gastritis without bleeding (principal); R53.83 Other fatigue; B96.81 Helicobacter pylori [H. pylori] as the cause of diseases classified elsewhere
CPT/HCPCS: 80053; 82607; 84443; 85025

== ENCOUNTER 2022-10-14 11:03 | Outpatient (CLI) | payer MEDICARE, OTHER ==
[2022-10-14 11:59] VITALS: BP 122/68
--- NOTE | 2022-10-14 11:59 | SLEEP CARE CONSULTATION ---
Information from patient questionnaire entered by Rosa Rodrigues. I have reviewed and concur with the information entered by Rosa Rodrigues. This document represents the service I personally performed and the decisions made by me, Deepika Haynes ARNP. History of Present Illness Service Date and Time: 10/14/2022 1103 Previous diagnosis: Moderate, Obstructive Sleep Apnea-Hypopnea Syndrome AHI: 23.9 (in 2014) Reason for follow up: annual (LAST SEEN 03/2020) Equipment type: CPAP (RESMED Airsense 10 s/u 08/2015; NEED SD CARD FOR DOWNLOAD AND PRESSURE CHANGES) Equipment obtained from: Other ([facility]; needs new prescription) Mask style: Full face Mask brand: Resmed (AirTouch F20) Backup mask available: No (needs to keep old mask when replaced) Prior sleep studies: Yes Year and Where: 2014 - [facility] Sleep Medicine in [place] [employer] additional information: ANISH RIVERA was diagnosed to have moderate, AHI 23.9, obstructive sleep apnea- hypopnea syndrome and returned today for CPAP therapy annual follow-up. Sleep Study - Results Prior sleep studies: Yes Year and Where: 2014 - [facility] Sleep Medicine in [place], [place] CPAP Compliance Data - Data Reviewed with Patient Average duration of nightly device use: 3 hours 6 minutes Compliance rate %: 22 (45/60 days used) Current pressure setting (cmH2O): 6-8 (avg 7.9, max 7.9) Average residual AHI: 17.5 Central apnea: 1.5 Obstructive apnea: 12.8 Hypopnea: 2.5 Average large leak: 2.6 LPM Subjective Missed days of use due to: reports: mask issues, illness (sinus and eye conditions; dry eyes), other (she is not sleep more than 3 hours nightly) Patient concerns: reports: air blowing in eyes, nasal congestion, dry mouth, nose, throat. denies: aerophagia, mask discomfort, mask leak noise, condensation in mask/hose, epistaxis Observed to snore while using device: No Current pressure setting perceived as: comfortable On therapy, patient: reports: sleeping better, awakening more refreshed, being more awake and alert during the day, more rested overall. denies: drowsiness while driving Initial [place] Sleepiness Scale score: 4 (in 2018) Current [place] Sleepiness Scale score: 9 (10/13/22) Allergies and Home Medications Known drug allergies: Yes (as listed) Drug allergies reviewed: Yes Home medication list reviewed: Yes (Zyrtec 10 mg daily) Allergy and home medication list: Allergies SARWAT Inhibitors Allergy (Verified 10/13/22 13:17) Unknown Penicillins Allergy (Verified 10/13/22 13:17) Itching Review of Systems Review of systems same as previous: No (Chronic vein insufficiency) Physical Exam Vital signs obtained and entered by: ROSA Rivera MA Blood Pressure: 122/68 (LEFT ARM) Cuff size: regular Heart Rate: 66 O2 Saturation: 96 Height: 5 ft 5 in Weight: 210 lb 9.6 oz Body Mass Index: 35.0 BMI Classification: Obese Impression and Plan 1. Obstructive Sleep Apnea-Hypopnea Syndrome, moderate, with poor treatment compliance and fair apnea control with elevated residual AHI. On CPAP therapy, the patient has better sleep quality and is more rested overall. Patient has issues with dry eyes and uses an eye drop to moisturize them. I advised her to try a sleeping mask to cover her eyes and reduce any air leaking into her eyes. She voiced understanding and agreement. She feels she could tolerate more pressure with this change. The patients pressure will be changed to autoCPAP 6- 10 cmH20 for elevation of residual AHI. Patient advised to contact me if pressure change is uncomfortable so that it can be adjusted. Goals for apnea control discussed. Patient's apnea severity and rationale for treatment to reduce apnea, improve sleep quality and reduce cardiovascular and cerebrovascular events was reviewed. I also reviewed the benefit of consistent device use of CPAP for hypertension. 2. Obesity, unspecified. Currently patients BMI is 35.0. Obesity increases the risk of apnea, CPAP pressure requirements and overall health risks especially cardiovascular and diabetes. Thus patient is advised to lose weight. * Change auto CPAP pressure to 6-10 cmH2O * Update supplies * Notify me if snoring with mask or feeling that the pressure is too much or too little * Attempt to lose weight * Call this office if any problems using CPAP * Return for follow up in 1 year, or sooner if concerns arise Counseling Topics: Spare mask, Weight loss health impact Visit Type: In Office Time Spent with Patient (minutes): 23 Provider Statement: I spent 100% of the Face to Face Visit with the patient with greater than 50% spent counseling the patient and coordination of care.
== END 2022-10-14 11:04 | disposition home or self-care (01) ==
LOC: SC 11:03
PROVIDERS: ATTEND Nurse Practitioner Family
DX: G47.33 Obstructive sleep apnea (adult) (pediatric) (principal); E66.9 Obesity, unspecified; Z68.35 Body mass index [BMI] 35.0-35.9, adult
CPT/HCPCS: 99213; G0463; 99212

== ENCOUNTER 2023-07-09 13:10 | Outpatient (CLI) | payer MEDICARE, OTHER ==
[2023-07-09 13:32] LABS: EOSINOPHILS # (AUTO) 0.2 10^3/uL (0.0-0.7); EOSINOPHILS % (AUTO) 5.5 %; HCT - HEMATOCRIT 46.6 % (37.0-47.0); HGB - HEMOGLOBIN 15.8 g/dL (12.0-16.0); LYMPHOCYTES # (AUTO) 1.5 10^3/uL (1.5-3.5); LYMPHOCYTES % (AUTO) 51.2 %; MEAN CORPUSCULAR HEMOGLOBIN 29.8 pg (27.0-31.0); MEAN CORPUSCULAR HGB CONC 33.9 g/dL (32.0-36.0); MEAN CORPUSCULAR VOLUME 87.9 fL (81.0-99.0); MEAN PLATELET VOLUME 10.8 fL (7.9-10.8); MONOCYTES # (AUTO) 0.6 10^3/uL (0.0-1.0); MONOCYTES % (AUTO) 21.5 %; NEUTROPHILS % (AUTO) 20.8 %; PLT - PLATELET COUNT 214 10^3/uL (130-450); RED CELL DISTRIBUTION WIDTH 12.9 % (12.0-15.0); WHITE BLOOD COUNT 2.9 x10^3/uL (4.8-10.8)
[2023-07-09 13:46] LABS: ALBUMIN 4.2 g/dL (3.2-5.5); ALBUMIN/GLOBULIN RATIO 1.4 (1.0-2.2); ALKALINE PHOSPHATASE 51 IU/L (42-121); ALT ALANINE AMINOTRANSFERASE 17 IU/L (10-60); AST ASPARTATE AMINOTRANSFERASE 21 IU/L (10-42); BILIRUBIN,TOTAL 1.3 mg/dL (0.2-1.0); BUN - BLOOD UREA NITROGEN 20 mg/dL (6-20); CALCIUM 9.5 mg/dL (8.5-10.3); CARBON DIOXIDE - CO2 27 mmol/L (21-32); CHLORIDE 106 mmol/L (101-111); CHOL/HDL RATIO 4.8 (<4.4); CHOLESTEROL 214 mg/dL; CREATININE 0.7 mg/dL (0.6-1.3); ESTIMATED AVERAGE GLUCOSE 105 mg/dL (70-100); GFR - MDRD 80 (>89); GLUCOSE 102 mg/dL (74-104); HDL CHOLESTEROL 45 mg/dL; HEMOGLOBIN A1c% 5.3 % (4.27-6.07); LDL CHOLESTEROL,CALCULATED 138 mg/dL; LDL/HDL RATIO 3.1 (<4.4); POTASSIUM 3.8 mmol/L (3.5-4.5); SODIUM 140 mmol/L (135-145); TOTAL PROTEIN 7.3 g/dL (6.4-8.9); TRIGLYCERIDES 153 mg/dL (48-352); VLDL CHOLESTEROL 31 mg/dL
[2023-07-09 13:58] LABS: THYROID STIMULATING HORMONE 0.66 uIU/mL (0.34-5.60)
[2023-07-09 14:06] LABS: BILIRUBIN,URINE NEGATIVE (NEGATIVE); GLUCOSE, URINE (UA) NEGATIVE (NEGATIVE); KETONES,URINE (UA) NEGATIVE (NEGATIVE); LEUKOCYTE ESTERASE, URINE NEGATIVE (NEGATIVE); NITRITE,URINE NEGATIVE (NEGATIVE); OCCULT BLOOD,URINE NEGATIVE (NEGATIVE); PH,URINE 5.5 PH (5.0-7.5); PROTEIN,URINE NEGATIVE (NEGATIVE); UROBILINOGEN,URINE 0.2 (NORMAL) E.U./dL (NORMAL)
[2023-07-09 14:10] LABS: PLATELET ESTIMATE, MANUAL NORMAL (130-450,000) (NORMAL); PLATELET MORPHOLOGY NORMAL APPEARANCE (NORMAL); RBC MORPHOLOGY (MULTIPLE) NORMAL APPEARANCE (NORMAL); SLIDE REVIEW? Indicated
[2023-07-09 14:13] LABS: NEUTROPHILS # (AUTO) 0.6 10^3/uL (1.5-6.6)
[2023-07-09 14:17] LABS: BACTERIA,URINE Few /HPF (None Seen); CLARITY,URINE HAZY (CLEAR); RBC,URINE None Seen /HPF (0-5); SQUAMOUS EPITHELIAL CELL,UR MOD Squamous (<= Few); WBC,URINE 0-3 /HPF (0-5)
[2023-07-10 09:09] LABS: VARICELLA-ZOSTER AB IGG 3098 index (Immune >165)
[2023-07-10 15:09] LABS: VARICELLA-ZOSTER AB IGM <0.91 index (0.00-0.90)
== END 2023-07-09 13:11 | disposition home or self-care (01) ==
LOC: LAB 13:10
PROVIDERS: ATTEND Internal Medicine
DX: Z00.00 Encounter for general adult medical examination without abnormal findings (principal); K21.9 Gastro-esophageal reflux disease without esophagitis; I10 Essential (primary) hypertension; E03.9 Hypothyroidism, unspecified; R73.01 Impaired fasting glucose; G47.00 Insomnia, unspecified; D70.9 Neutropenia, unspecified; M19.90 Unspecified osteoarthritis, unspecified site; K27.9 Peptic ulcer, site unspecified, unspecified as acute or chronic, without hemorrhage or perforation; J30.2 Other seasonal allergic rhinitis; J32.9 Chronic sinusitis, unspecified; G47.30 Sleep apnea, unspecified; M48.00 Spinal stenosis, site unspecified; R32 Unspecified urinary incontinence
CPT/HCPCS: 36415; 80053; 80061; 81001; 83036; 83721; 84443; 85025; 86787; 87086

== ENCOUNTER 2024-01-10 11:36 | Outpatient (CLI) | payer MEDICARE, OTHER ==
[2024-01-10 12:19] LABS: ESTIMATED AVERAGE GLUCOSE 105 mg/dL (70-100); HEMOGLOBIN A1c% 5.3 % (4.27-6.07)
[2024-01-10 12:26] LABS: THYROID STIMULATING HORMONE 3.72 uIU/mL (0.34-5.60)
== END 2024-01-10 11:37 | disposition home or self-care (01) ==
LOC: LAB 11:36
PROVIDERS: ATTEND Internal Medicine
DX: E03.9 Hypothyroidism, unspecified (principal); R73.01 Impaired fasting glucose
CPT/HCPCS: 36415; 83036; 84443

== ENCOUNTER 2024-04-14 14:36 | Outpatient (CLI) | payer MEDICARE, OTHER ==
--- NOTE | 2024-04-14 15:09 | Sleep Patient Instructions ---
Sleep Center Visit Summary - Patient Visit Information Reason for Visit: Annual follow-up - Patient Instructions Additional Instructions: You will continue with CPAP therapy with pressure changed to 8-12 cmH2O. Please let us know if the pressure change is uncomfortable and we can make further adjustments of the pressure. A supply prescription will be updated with your DME supplier. I have added a mask refitting for you to try a different mask. We encourage you to continue to try to lose weight. Please follow up with the sleep care office in 1-2 months. - Clinic Information Contact: [facility] [address] [place] [address] [email or web address] T: [phone]
--- NOTE | 2024-04-14 15:12 | SLEEP CARE CONSULTATION ---
Information from patient questionnaire entered by Rosa Rodrigues. I have reviewed and concur with the information entered by Rosa Rodrigues. This document represents the service I personally performed and the decisions made by me, Deepika Haynes ARNP. History of Present Illness Service Date and Time: 04/14/2024 1436 Previous diagnosis: Moderate, Obstructive Sleep Apnea-Hypopnea Syndrome AHI: 23.9 (in 2014) Reason for follow up: annual (LAST SEEN 09/2022) Equipment type: CPAP (RESMED Airsense 10 s/u 08/2021; NEED SD CARD FOR DOWNLOAD AND PRESSURE CHANGES) Equipment obtained from: Other ([facility]; getting supplies) Mask style: Full face Mask brand: Resmed (AirTouch F20, medium cushion) Backup mask available: Yes Last cushion change: couple months Prior sleep studies: Yes Year and Where: 2014 - [facility] in [facility] additional information: ANISH RIVERA was diagnosed to have moderate, AHI 23.9, obstructive sleep apnea- hypopnea syndrome and returned today for CPAP therapy annual follow-up. Sleep Study - Results Prior sleep studies: Yes Year and Where: 2014 - [facility] in [place], [place] CPAP Compliance Data - Data Reviewed with Patient Average duration of nightly device use: 3 HRS 10 MINS Compliance rate %: 28 (10/17/23-04/13/24; 163/180 days used) Current pressure setting (cmH2O): 6-10 Average residual AHI: 14.4 Central apnea: 4 Obstructive apnea: 7.6 Hypopnea: 2.4 Average large leak: 4.4 L/min Subjective Missed days of use due to: reports: mask issues Patient concerns: reports: mask leak noise, nasal congestion, dry mouth, nose, throat. denies: aerophagia, mask discomfort, air blowing in eyes, condensation in mask/hose, epistaxis Observed to snore while using device: No Current pressure setting perceived as: comfortable On therapy, patient: reports: sleeping better, awakening more refreshed, being more awake and alert during the day, more rested overall. denies: drowsiness while driving Initial [place] Sleepiness Scale score: 4 (in 2019) Current [place] Sleepiness Scale score: 7 (04/14/24) Allergies and Home Medications Known drug allergies: Yes (as listed) Drug allergies reviewed: Yes Home medication list reviewed: Yes (no changes) Allergy and home medication list: Allergies SARWAT Inhibitors Allergy (Verified 04/14/24 14:34) Unknown Penicillins Allergy (Verified 04/14/24 14:34) Itching Review of Systems Review of systems same as previous: Yes (NO CHANGE) Physical Exam Vital signs obtained and entered by: ROSA Rivera MA Blood Pressure: 168/80 (LEFT WRIST) Cuff size: SMALL CUFF Heart Rate: 66 O2 Saturation: 96 Height: 5 ft 5 in Weight: 213 lb 6.4 oz Body Mass Index: 35.5 BMI Classification: Obese Impression and Plan 1. Obstructive Sleep Apnea-Hypopnea Syndrome, moderate, with poor treatment compliance and fair apnea control with elevated residual AHI. On CPAP therapy, the patient has better sleep quality and is more rested overall. She still feels like she sometimes gets obstructions in her throat. I reviewed with her that her residual AHI is still elevated although it is better after the last pressure adjustment. I advised her that she could do a titration study but she was not ready to do another study. The patients pressure will be changed to autoCPAP 8- 12 cmH20 for elevation of residual AHI. Patient advised to contact me if pressure change is uncomfortable so that it can be adjusted. Goals for apnea control discussed. Patient thinks that the mass just does not fit her right and is part of the problem with the mask leaking and she is getting a very dry mouth and throat. I will write for a mask refitting so that she can try a different style of mask that may fit better and leak less. Patient's apnea severity and rationale for treatment to reduce apnea, improve sleep quality and reduce cardiovascular and cerebrovascular events was reviewed. I also reviewed the benefit of consistent device use of CPAP for hypertension. 2. Obesity, unspecified. Currently patients BMI is 35.5. Obesity increases the risk of apnea, CPAP pressure requirements and overall health risks especially cardiovascular and diabetes. Thus patient is advised to lose weight. * Change auto CPAP pressure to 8-12 cmH2O * Mask refitting for full face mask * Update supply prescription * Notify me if snoring with mask or feeling that the pressure is too much or too little * Attempt to lose weight * Call this office if any problems using CPAP * Return for follow up in 1-2 months, or sooner if concerns arise Adjust device pressure to (cmH2O): 8-12 Counseling Topics: Spare mask, Weight loss health impact Prescriptions: Device supplies (and mask refitting) Follow up with Sleep Care in: 1-2 months Visit Type: In Office Time Spent with Patient (minutes): 23 Provider Statement: I spent 100% of the Face to Face Visit with the patient with greater than 50% spent counseling the patient and coordination of care.
[2024-04-14 15:16] VITALS: BP 168/80; O2SAT 96
== END 2024-04-14 14:37 | disposition home or self-care (01) ==
LOC: SC 14:36
PROVIDERS: ATTEND Nurse Practitioner Family
DX: G47.33 Obstructive sleep apnea (adult) (pediatric) (principal); E66.9 Obesity, unspecified; Z68.35 Body mass index [BMI] 35.0-35.9, adult
CPT/HCPCS: 99213; G0463; 99212